=== PATIENT | male | born 1930 | race Caucasian/White ===

== ENCOUNTER 2017-12-02 09:28 | Inpatient (IN) | payer MEDICARE ==
[~2017-12-02] VITALS: Ht 180.3 cm; Wt 88.6 kg
[2017-12-02] MEDS ORDERED: ACETAMINOPHEN 500 MG TAB (TYLENOL) PO PRN (09:45)
[2017-12-02] MEDS ORDERED: fentaNYL INJECTION 100 MCG/2 ML AMP IVP PRN (09:45)
[2017-12-02] MEDS ORDERED: ONDANSETRON 4 MG/2 ML (SDV) Z0FRAN IVP PRN (09:45)
[2017-12-02] MEDS ORDERED: HYDROcodone/APAP 5 MG/325 MG (LORTAB) TAB PO PRN (09:45)
[2017-12-02 10:58] VITALS: BP 182/85
[2017-12-02 11:15] VITALS: BP 160/80
[2017-12-02 11:30] VITALS: BP 154/76
[2017-12-02 13:00] VITALS: BP 183/92
[2017-12-02] MEDS ORDERED: LISI10TA2 PO (13:16)
[2017-12-02] MEDS ORDERED: ACET-2650 PO (13:16)
[2017-12-02] MEDS ORDERED: RIVA15TA PO (13:16)
[2017-12-02] MEDS ORDERED: GABA-488 PO ×2 (13:16)
[2017-12-02] MEDS ORDERED: METO100T12 PO ×2 (13:16→16:15)
[2017-12-02] MEDS ORDERED: OMEP20CA12 PO (13:16)
[2017-12-02] MEDS ORDERED: GLIM2TAB PO (13:16)
[2017-12-02] MEDS ORDERED: PRD10T PO (13:16)
--- NOTE | 2017-12-02 13:27 | Consultation-Cardiology ---
HPI-Cardiology Cardiology Consultation Date of Consultation 12/02/17 Date of Admission Time Seen by Provider: 13:21 Indication: near syncope HPI 87 years old gentleman with history of hypertension, diabetes mellitus, chronic atrial fibrillation, has been maintained on multiple medication. Has been feeling lightheaded and dizzy for few days. Reported an episode of dizziness this morning, suddenly became extremely weak, did not fall to the floor, he was sitting down and was unable to move or talk. Brought to the emergency room and noted to be severely bradycardic with a heart rate in the 30s to 40s, blood pressure was elevated, he was responsive at the time of arrival to the emergency room, currently upon my evaluation he is heart rate is between the upper 40s and lower 50s, blood pressure is 180/80. He is feeling well. Denied any chest pain, reporting an episode of chest pain around the summer time. No palpitation. No syncope in the past. Reporting mild pedal edema reporting that he becomes diaphoretic usually at night, having significantly cold feet using 3 or 4 socks Home Medications & Allergies Allergies: Coded Allergies: No Allergy Information Available (Unverified , 12/02/17) Home Medication List Reviewed: Yes [id number] Hx Patient Social History Marital Status: Employed/Student: retired Alcohol Use: Denies Use Recreational Drug Use: No Smoking Status: Former Smoker Type Used: Cigarettes Recent Foreign Travel: No Recent Infectious Disease Expo: No Recent Hopitalizations: No (last year [facility] for anemia) Physical Abuse Screen: No Sexual Abuse: No Immunizations Up To Date Date of Pneumonia Vaccine: Dec 02, 2014 Date of Influenza Vaccine: Aug 01, 2017 Past Medical History Discussed below Family Medical History Family Medical Hx Non contributory Constitutional: see HPI, dizziness, malaise, weakness EENTM: see HPI, no symptoms reported, nose congestion Respiratory: see HPI, No cough, No dyspnea on exertion, No hemoptysis, No orthopnea, No phlegm, No short of breath, No stridor, No wheezing, No other Cardiovascular: see HPI, No chest pain, edema, No Hx of Intervention, No palpitations, No syncope, No vascular heart diseas, No other Gastrointestinal: RUQ, RLQ, see HPI Genitourinary: no symptoms reported, see HPI Musculoskeletal: no symptoms reported, see HPI Skin: no symptoms reported, see HPI Psychiatric/Neurological: No Symptoms Reported, See HPI Reviewed Test Results Reviewed Test Results Lab labs reviewed from [facility]. Physical Exam Vital Signs Vital Signs - First Documented 12/02/17 11:48 Pulse Ox 100 O2 Flow Rate 2.00 Capillary Refill : General Appearance: No Apparent Distress, WD/WN Eyes: Bilateral Eye Normal Inspection, Bilateral Eye PERRL, Bilateral Eye EOMI HEENT: PERRL/EOMI, TMs Normal, Normal ENT Inspection, Pharynx Normal Neck: Full Range of Motion, Normal Inspection, Non Tender, Supple, Carotid Bruit Respiratory: Chest Non Tender, Lungs Clear, Normal Breath Sounds, No Accessory Muscle Use, No Respiratory Distress Cardiovascular: No Edema, No JVD, No Murmur, Normal Peripheral Pulses, Systolic Murmur, Irregularly Irregular Gastrointestinal: Normal Bowel Sounds, No Organomegaly, No Pulsatile Mass, Non Tender, Soft Back: Normal Inspection, No CVA Tenderness, No Vertebral Tenderness Extremity: Normal Capillary Refill, Normal Inspection, Normal Range of Motion, Non Tender, No Calf Tenderness, No Pedal Edema Neurologic/Psychiatric: Alert, Oriented x3, No Motor/Sensory Deficits, Normal Mood/Affect Skin: Normal Color, Warm/Dry Lymphatic: No Adenopathy A/P-Cardiology Admission Diagnosis Near syncope Bradycardia Chronic atrial fibrillation Hypertension Hyperlipidemia Assessment/Plan Near syncope, probably due to bradycardia. Patient is on telemetry, continue to monitor heart rate at this time. Did not initiate any treatment. Chronic atrial fibrillation, maintained on beta blockers with metoprolol. I will hold metoprolol and monitor heart rate and blood pressure response, restart BIGG inhibitor. Continue on Xarelto. Oral anticoagulation on Xarelto to reduce the risk of stroke. Diabetes mellitus, followed and managed by primary care physician History of chest pain nonspecific etiology. No recent episodes of chest pain. Arthritis and arthritic pain, he has started on prednisone. No known history of coronary artery disease. Hypertension, currently hypertensive, restart home medication except for beta blockers. Hyperlipidemia, continue to monitor lipids Carotid stenosis, try to obtain copy of the latest carotid ultrasound Cold feet, patient is fairly active without limitation. Has palpable pulse. Probably cold feet are due to vasoconstriction in addition to the beta blockers. Clinical Quality Measures DVT/VTE Risk/Contraindication: Risk Factor Score Per Nursin RFS Level Per Nursing on Admit: 2=Moderate SAVITA BANKS MD Dec 02, 2017 13:26
[2017-12-02 16:00] VITALS: BP 140/66
[2017-12-02] MEDS ORDERED: LATA2.5D19 OU (16:12)
[2017-12-02] MEDS: RIVAROXABAN 15 MG TABLET (XARELTO) PO SCH (18:36)
[2017-12-02 20:00] VITALS: BP 159/83
[2017-12-02] MEDS: lisINopril 10 MG (PRINIVIL) TAB PO SCH (21:24)
[2017-12-03] VITALS: BP 167/72
[2017-12-03 03:53] LABS: BASOPHILS % (AUTO) 0 % (0-10); EOSINOPHILS % (AUTO) 1 % (0-10); HEMATOCRIT 37 % (40-54); HEMOGLOBIN 11.5 G/DL (13.3-17.7); LYMPHOCYTES # (AUTO) 1.3 X 10^3 (1.0-4.0); LYMPHOCYTES % (AUTO) 21 % (12-44); MEAN CORPUSCULAR HEMOGLOBIN 29 PG (25-34); MEAN CORPUSCULAR HGB CONC 31 G/DL (32-36); MEAN CORPUSCULAR VOLUME 91 FL (80-99); MEAN PLATELET VOLUME 11.1 FL (7.4-10.4); MONOCYTES # (AUTO) 0.4 X 10^3 (0.0-1.0); MONOCYTES % (AUTO) 6 % (0-12); NEUTROPHILS # (AUTO) 4.5 X 10^3 (1.8-7.8); NEUTROPHILS % (AUTO) 72 % (42-75); PLATELET COUNT 463 10^3/uL (130-400); RED BLOOD COUNT 4.03 10^6/uL (4.35-5.85); RED CELL DISTRIBUTION WIDTH 16.9 % (10.0-14.5); WHITE BLOOD COUNT 6.2 10^3/uL (4.3-11.0)
[2017-12-03 04:00] VITALS: BP 149/63
[2017-12-03 04:06] LABS: ALANINE AMINOTRANSFERASE 25 U/L (0-55); ALBUMIN 3.4 GM/DL (3.2-4.5); ALKALINE PHOSPHATASE 53 U/L (40-136); BILIRUBIN,TOTAL 0.7 MG/DL (0.1-1.0); BUN/CREATININE RATIO 13; CALCIUM 8.9 MG/DL (8.5-10.1); CARBON DIOXIDE 22 MMOL/L (21-32); CHLORIDE 107 MMOL/L (98-107); GFR ESTIMATED 57; GLUCOSE 120 MG/DL (70-105); MAGNESIUM 1.8 MG/DL (1.8-2.4); POTASSIUM 4.2 MMOL/L (3.6-5.0); SODIUM 142 MMOL/L (135-145); TOTAL PROTEIN 5.9 GM/DL (6.4-8.2)
[2017-12-03] MEDS: PANTOPRAZOLE 20 MG TABLET (PROTONIX) PO SCH (06:55)
[2017-12-03 07:56] VITALS: BP 188/79
[2017-12-03] MEDS: predniSONE 10 MG TAB PO SCH (08:33)
[2017-12-03] MEDS: lisINopril 10 MG (PRINIVIL) TAB PO SCH ×2 (08:33→20:18)
--- NOTE | 2017-12-03 08:51 | Cardiology Progress Note ---
Subjective Date Seen by Provider: Dec 03, 2017 Time Seen by Provider: 08:49 Subjective/Events-last exam Patient is laying down in bed, did not sleep well last night. Denied any chest pain or shortness of breath. Denied any palpitation. Review of Systems General: No Chills, No Night Sweats, No Fatigue, No Malaise, No Appetite, No Other HEENT: No Head Aches, No Visual Changes, No Eye Pain, No Ear Pain, No Dysphasia , No Sinus Congestion, No Post Nasal Drip, No Sore Throat, No Other Pulmonary: No Dyspnea, No Cough, No Pleuritic Chest Pain, No Other Cardiovascular: No: Chest Pain, Palpitations, Orthopnea, Paroxysmal Noc. Dyspnea, Edema, Lt Headedness, Other Objective-Cardiology Exam Last Set of Vital Signs Vital Signs 12/03/17 07:56 Temp 96.3 Pulse 66 Resp 16 B/P (MAP) 188/79 (115) Pulse Ox 95 O2 Delivery Nasal Cannula O2 Flow Rate 2.00 Capillary Refill : I&O Intake and Output 12/03/17 00:00 Intake Total 455 ml Output Total 300 ml Balance 155 ml Intake Oral 455 ml Output Urine Total 300 ml # Bowel Movements 2 Daily Weight Change No General: Alert, Oriented X3, Cooperative HEENT: Atraumatic, PERRLA Neck: Supple, No JVD, No Thyromegaly Lungs: Clear to Auscultation, Normal Air Movement Heart: Normal S1, Normal S2, No Murmurs, Other (Irregular) Abdomen: Normal Bowel Sounds, Soft, No Tenderness, No Hepatosplenomegaly, No Masses Extremities: No Clubbing, No Cyanosis, No Edema, Normal Pulses, No Tenderness/ Swelling Skin: No Rashes, No Breakdown, No Significant Lesion Neuro: Normal Gait, Normal Speech, Strength at 5/5 X4 Ext, Normal Tone, Sensation Intact Psych/Mental Status: Mental Status NL, Mood NL Results Lab Laboratory Tests 12/03/17 03:15 A/P-Cardiology Admission Diagnosis Near syncope Bradycardia Chronic atrial fibrillation Hypertension Hyperlipidemia Assessment/Plan Near syncope, probably due to bradycardia, better at this time. Continue to monitor next Bradycardia secondary to metoprolol overdose. Adjusted his medicine, I will restart metoprolol at a low dose and monitor his tolerance and response. Chronic atrial fibrillation, rate is better controlled. Continue to monitor Oral anticoagulation on Xarelto to reduce the risk of stroke. Diabetes mellitus, followed and managed by primary care physician History of chest pain nonspecific etiology. No recent episodes of chest pain. Patient will need stress test as an outpatient Arthritis and arthritic pain, he has started on prednisone. No known history of coronary artery disease. Hypertension, monitor blood pressure response to the medication adjustment Hyperlipidemia, continue to monitor lipids Carotid stenosis, try to obtain copy of the latest carotid ultrasound Peripheral neuropathy, burning sensation in the feet, feeling cold, I decrease the beta brianne dose, maintained on gabapentin. Managed by primary care physician. Clinical Quality Measures DVT/VTE Risk/Contraindication: Risk Factor Score Per Nursin RFS Level Per Nursing on Admit: 2=Moderate SAVITA BANKS MD Dec 03, 2017 08:51
[2017-12-03] MEDS ORDERED: OMEPRAZOLE 20 MG (PriLOSEC) CAP NON-FORMULARY PO SCH (09:00)
--- NOTE | 2017-12-03 09:39 | History & Physical-Hospitalist ---
HPI History of Present Illness: HPI/Chief Complaint CC: Severe bradycardia with syncope HPI: This is an 87-year-old white male clinic patient of Dr. Fernando whom I accepted as a direct admission transfer from [facility] ER due to severe bradycardia of heart rate of 30 documented on telemetry and syncopal episode at home. He did have significant hypoxia and hypotension upon arrival that was improved with supportive care with IV fluids and entire workup including CT scan CT abdomen and other lab values showed no evidence of any myocardial ischemia or sepsis. His regular associate drafter is Dr. Pickard in [place] but due to the fact that Breana in [place] was on diversion he was transferred via [facility] and Dr. Hong cardiology was consulted. Dr. Hong has decreased the Lopressor dose and now restarted at 12.5 mg twice a day which is helping the heart rate remained at 60. All he is concerned about is the neuropathy in his toes that are very cold and Dr. Fernando placed him on gabapentin 5 times a day does not help. I told them that neuropathy is a very difficult condition to treat and they were aware of that and I will refer back to Dr. Fernando primary care provider to manage that issue. Source: patient, family, RN/MD Exam Limitations: no limitations Date Seen 12/03/17 Time Seen by Provider: 09:00 Attending Physician Jeanne Torres Lisa A MD Referring Physician Date of Admission Dec 02, 2017 at 10:58 Home Medications & Allergies Home Medications Reviewed patient Home Medication Reconciliation Form Allergies Allergies Coded Allergies No Known Drug Allergies (Unverified12/03/17) Past [id number] Hx Patient Social History Marrital Status: Employed/Student: retired Alcohol Use: Denies Use Recreational Drug Use: No Smoking Status: Former Smoker Former Smoker, Quit: Dec 02, 1964 Type Used: Cigarettes Physical Abuse Screen: No Sexual Abuse: No Recent Foreign Travel: No Contact w/other who traveled: No Recent Hopitalizations: No (last year [place] for anemia) Recent Infectious Disease Expo: No Immunizations Up To Date Date of Pneumonia Vaccine: Dec 02, 2014 Date of Influenza Vaccine: Aug 01, 2017 Seasonal Allergies Seasonal Allergies: Yes Surgeries Yes Respiratory No Currently Using CPAP: No Currently Using BIPAP: No Cardiovascular Yes Atrial Fibrillation, High Cholesterol, Hypertension Neurological No Reproductive System Sexually Transmitted Disease: No HIV/AIDS: No Genitourinary Yes Kidney Stones Gastrointestinal No Musculoskeletal Yes Arthritis Endocrine History of Endocrine Disorders: Yes Endocrine Disorders: Diabetes, Non-Insulin dep Are Your Blood Sugars Over 250: No HEENT History of HEENT Disorders: Yes HEENT Disorders: Glaucoma Hearing Impairment: Hard of Hearing Cancer Yes Skin Did You Recieve Any Treatments: No Type of Treatment: Surgical Intervention Cancer Comment: removed spots from face Psychosocial History of Psychiatric Problem: No Integumentary History of Skin or Integumenta: Yes Skin/Integumentary Disorders: Eczema Blood Transfusions History of Blood Disorders: No Adverse Reaction to a Blood Tr: No Review of Systems Constitutional: see HPI, dizziness, weakness EENTM: no symptoms reported Respiratory: no symptoms reported Cardiovascular: no symptoms reported Gastrointestinal: no symptoms reported Genitourinary: no symptoms reported Musculoskeletal: no symptoms reported Skin: no symptoms reported Psychiatric/Neurological: No Symptoms Reported All Other Systems Reviewed Negative Unless Noted: Yes Physical Exam Physical Exam Vital Signs Vital Signs - First Documented 12/02/17 10:58 Temp 97.0 Pulse 51 Resp 20 B/P (MAP) 182/85 (117) Pulse Ox 99 O2 Delivery Nasal Cannula O2 Flow Rate 2.00 Capillary Refill : General Appearance: No Apparent Distress, WD/WN, Chronically ill, Obese Eyes: Bilateral Eye Normal Inspection, Bilateral Eye PERRL HEENT: PERRL/EOMI, Normal ENT Inspection, Pharynx Normal Neck: Full Range of Motion, Normal Inspection, Non Tender, Supple, Carotid Bruit Respiratory: Chest Non Tender, Lungs Clear, Normal Breath Sounds, No Accessory Muscle Use, No Respiratory Distress Cardiovascular: Regular Rate, Rhythm, No Edema, No Gallop, No JVD, No Murmur, Normal Peripheral Pulses Gastrointestinal: Normal Bowel Sounds, No Organomegaly, No Pulsatile Mass, Non Tender, Soft Back: Normal Inspection, No CVA Tenderness, No Vertebral Tenderness Extremity: Normal Capillary Refill, Normal Inspection, Normal Range of Motion, Non Tender, No Calf Tenderness, No Pedal Edema Neurologic/Psychiatric: Alert, Oriented x3, No Motor/Sensory Deficits, Normal Mood/Affect Skin: Normal Color, Warm/Dry Lymphatic: No Adenopathy Results Results/Procedures Lab Laboratory Tests 12/03/17 03:15 Assessment/Plan Admission Diagnosis Assessment: Syncope due to severe bradycardia likely due to metoprolol affect History of atrial fibrillation Diabetes mellitus Bilateral toe neuropathy Assessment and Plan Plan: Appreciate cardiology consultation Low dose of metoprolol started today and will monitor Transfer to fourth floor on Holter monitor DC tomorrow Clinical Quality Measures DVT/VTE Risk/Contraindication: Risk Factor Score Per Nursin RFS Level Per Nursing on Admit: 2=Moderate JEANNE TORRES DO Dec 03, 2017 09:39
[2017-12-03] MEDS: GABAPENTIN 300 MG (NEURONTIN) CAP PO SCH ×2 (10:02→17:20)
[2017-12-03] MEDS: meTOprolol TARTRATE 25 MG (LOPRESSOR) TABLET PO SCH ×2 (10:02→20:18)
[2017-12-03] MEDS: GLIMEPIRIDE 1 MG (AMARYL) TAB PO SCH (10:02)
[2017-12-03 12:00] VITALS: BP 176/83
[2017-12-03 16:05] VITALS: BP 166/76
[2017-12-03] MEDS: RIVAROXABAN 15 MG TABLET (XARELTO) PO SCH (17:20)
[2017-12-03 20:24] VITALS: BP 129/60
[2017-12-03] MEDS ORDERED: NON-FORMULARY MEDICATION 1 EA EA (Acetaminophen (Tylenol Arthritis) 650 MG) PO SCH (21:00)
[2017-12-03] MEDS ORDERED: LATANOPROST 0.005% (XALATAN) OPHTH SOLN 2.5 ML OU SCH (21:00)
[2017-12-03] MEDS ORDERED: GABAPENTIN 600 MG (NEURONTIN) TAB PO SCH (21:00)
[2017-12-04] VITALS: BP 156/70
[2017-12-04 04:00] VITALS: BP 146/66
[2017-12-04] MEDS: GLIMEPIRIDE 1 MG (AMARYL) TAB PO SCH (06:16)
[2017-12-04] MEDS: PANTOPRAZOLE 20 MG TABLET (PROTONIX) PO SCH (06:16)
[2017-12-04 08:00] VITALS: BP 190/88
[2017-12-04] MEDS: lisINopril 10 MG (PRINIVIL) TAB PO SCH (08:26)
[2017-12-04] MEDS: predniSONE 10 MG TAB PO SCH (08:26)
[2017-12-04] MEDS: meTOprolol TARTRATE 25 MG (LOPRESSOR) TABLET PO SCH (08:26)
[2017-12-04] MEDS: GABAPENTIN 300 MG (NEURONTIN) CAP PO SCH (08:26)
[2017-12-04] MEDS ORDERED: METO-333 PO (10:20)
--- NOTE | 2017-12-04 10:21 | Discharge Summary-Hospitalist ---
Diagnosis/Chief Complaint Date of Admission Dec 03, 2017 at 10:55 Date of Discharge Discharge Date: Dec 04, 2017 Admission Diagnosis Assessment: Syncope due to severe bradycardia likely due to metoprolol affect History of atrial fibrillation Diabetes mellitus Bilateral toe neuropathy Discharge Diagnosis Assessment: Syncope due to severe bradycardia likely due to metoprolol affect History of atrial fibrillation Diabetes mellitus Bilateral toe neuropathy Plan: Appreciate cardiology consultation Low dose of metoprolol started today and will monitor Transfer to fourth floor on Holter monitor DC tomorrow Discharge Summary Discharge Physical Examination Allergies: Coded Allergies: No Known Drug Allergies (Unverified , 12/03/17) Vitals & I&Os Vital Signs Date Time Temp Pulse Resp B/P (MAP) Pulse Ox O2 Delivery O2 Flow Rate FiO2 12/04/17 11:15 152/67 12/04/17 08:00 Room Air 12/04/17 08:00 97.5 56 18 96 12/03/17 16:05 2.00 Hospital Course Hospital course: Patient had an uneventful hospital course he was admitted placed on cardiac stepdown for close monitoring and cardiology was consulted. Metoprolol was held and heart rate did recover well into the 60 range and patient was placed back on metoprolol of 12.5 MG twice daily with good results. No other syncopal episodes experienced during the hospital course and he was found to be stable for discharge with close follow-up with Dr. Fernando's primary care provider and will be monitored closely in the meantime. Discharge Home Medications: Active Scripts Active Lisinopril 20 Mg Tablet 20 Mg PO DAILY 30 Days Metoprolol Tartrate 25 Mg Tablet 12.5 Mg PO BID Reported Metoprolol Tartrate 100 Mg Tablet 50 Mg PO DAILY TAKES 1/2 (100MG) TABLET Xalatan (Latanoprost) 2.5 Ml Drops 1 Drop OU HS Xarelto (Rivaroxaban) 15 Mg Tablet 15 Mg PO 1800 Glimepiride 2 Mg Tablet 1 Mg PO DAILY TAKES 1/2 (2MG) TABLET Prednisone 10 Mg Tab 10 Mg PO DAILY Omeprazole 20 Mg Capsule.dr 20 Mg PO DAILY Gabapentin 300 Mg Capsule 600 Mg PO HS Gabapentin 300 Mg Capsule 300 Mg PO 0800,1200,1800 Tylenol Arthritis (Acetaminophen) 650 Mg Tablet.er 650 Mg PO BID Instructions to patient/family Please see electronic discharge instructions given to patient. Clinical Quality Measures DVT/VTE Risk/Contraindication: Risk Factor Score Per Nursin RFS Level Per Nursing on Admit: 2=Moderate NIKKIE TORRES DO Dec 04, 2017 10:21
--- NOTE | 2017-12-04 10:24 | Cardiology Progress Note ---
Subjective Date Seen by Provider: Dec 04, 2017 Time Seen by Provider: 10:20 Subjective/Events-last exam Patient is in a chair, feeling better, no new complaint, no chest pain or shortness of breath, no palpitations, no syncope Review of Systems General: No Chills, No Night Sweats, No Fatigue, No Malaise, No Appetite, No Other HEENT: No Head Aches, No Visual Changes, No Eye Pain, No Ear Pain, No Dysphasia , No Sinus Congestion, No Post Nasal Drip, No Sore Throat, No Other Pulmonary: No Dyspnea, No Cough, No Pleuritic Chest Pain, No Other Cardiovascular: No: Chest Pain, Palpitations, Orthopnea, Paroxysmal Noc. Dyspnea, Edema, Lt Headedness, Other Objective-Cardiology Exam Last Set of Vital Signs Vital Signs 12/03/17 12/04/17 16:05 08:00 Temp 97.5 Pulse 56 Resp 18 B/P (MAP) 190/88 (122) Pulse Ox 96 O2 Delivery Room Air O2 Flow Rate 2.00 Capillary Refill : I&O Intake and Output 12/04/17 00:00 Intake Total 850 ml Output Total 450 ml Balance 400 ml Intake Oral 850 ml Output Urine Total 450 ml # Voids 5 # Bowel Movements 1 General: Alert, Oriented X3, Cooperative HEENT: Atraumatic, PERRLA Neck: Supple, No JVD, No Thyromegaly Lungs: Clear to Auscultation, Normal Air Movement Heart: Regular Rate, Normal S1, Normal S2, No Murmurs Abdomen: Normal Bowel Sounds, Soft, No Tenderness, No Hepatosplenomegaly, No Masses Extremities: No Clubbing, No Cyanosis, No Edema, Normal Pulses, No Tenderness/ Swelling Skin: No Rashes, No Breakdown, No Significant Lesion Neuro: Normal Gait, Normal Speech, Strength at 5/5 X4 Ext, Normal Tone, Sensation Intact Psych/Mental Status: Mental Status NL, Mood NL A/P-Cardiology Admission Diagnosis Near syncope Bradycardia Chronic atrial fibrillation Hypertension Hyperlipidemia Assessment/Plan Near syncope, secondary to bradycardia due to beta blockers overdose. Heart rate is better. Continue to monitor Bradycardia secondary to metoprolol overdose, better at this time. Chronic atrial fibrillation, currently in atrial flutter with 3:1 conduction, heart rate is controlled. Tolerating Lopressor 12.5 mg twice daily well. Hypertension, I will maintain him on lisinopril 20 mg once daily instead of lisinopril 10 mg twice daily and Lopressor 12.5 mg twice daily and monitor his blood pressure at home. I checked his blood pressure this morning and it was 150/80. Patient will need to see Dr. Pickard in the next one to 2 weeks Oral anticoagulation on Xarelto to reduce the risk of stroke. Diabetes mellitus, followed and managed by primary care physician History of chest pain nonspecific etiology. No recent episodes of chest pain. Patient will need stress test as an outpatient Arthritis and arthritic pain, he has started on prednisone. No known history of coronary artery disease. Hyperlipidemia, continue to monitor lipids Carotid stenosis, try to obtain copy of the latest carotid ultrasound Peripheral neuropathy, burning sensation in the feet, feeling cold, I decrease the beta brianne dose, maintained on gabapentin. Managed by primary care physician. Clinical Quality Measures DVT/VTE Risk/Contraindication: Risk Factor Score Per Nursin RFS Level Per Nursing on Admit: 2=Moderate SAVITA BANKS MD Dec 04, 2017 10:24
[2017-12-04] MEDS ORDERED: LISI-552 PO (10:45)
[2017-12-04 11:15] VITALS: BP 152/67
[2017-12-05] MEDS ORDERED: lisINopril 20 MG (ZESTRIL) TAB PO SCH (09:00)
== END 2017-12-04 11:10 | disposition home or self-care (01) | DRG 918 ==
LOC: UNDOADMOB 10:58 → ICU 10:58 → 4TH 12-03 10:10 → ICU 12-03 10:10 → INTOOBSV 12-03 10:55 → OBSVTOIN 12-03 10:55 → UNDODISIN 12-04 11:10
PROVIDERS: ADMIT Internal Medicine; ATTEND Internal Medicine
DX: T44.7X1A Poisoning by beta-adrenoreceptor antagonists, accidental (unintentional), initial encounter (principal); R00.1 Bradycardia, unspecified; R55 Syncope and collapse; R09.02 Hypoxemia; I48.92 Unspecified atrial flutter; I95.9 Hypotension, unspecified; I10 Essential (primary) hypertension; E78.5 Hyperlipidemia, unspecified; I48.2 Chronic atrial fibrillation; E11.42 Type 2 diabetes mellitus with diabetic polyneuropathy; J30.2 Other seasonal allergic rhinitis; H40.9 Unspecified glaucoma; M19.91 Primary osteoarthritis, unspecified site; I65.29 Occlusion and stenosis of unspecified carotid artery; H91.90 Unspecified hearing loss, unspecified ear; L30.9 Dermatitis, unspecified; Z79.84 Long term (current) use of oral hypoglycemic drugs; Z87.891 Personal history of nicotine dependence; Z87.442 Personal history of urinary calculi; Z79.01 Long term (current) use of anticoagulants
CPT/HCPCS: 36415; 80053; 83735; 84443; 84484; 85025; 85027; 93005; 93306